=== PATIENT | male | born 1945 | race African-American/Black ===

== ENCOUNTER 2017-10-24 10:14 | Emergency (ER) | payer MEDICARE ==
[~2017-10-24] VITALS: Ht 175.3 cm; Wt 88.5 kg
[~2017-10-24 10:14] MED LIST: AMLODIPINE BESY10 MG PO; BENAZEPRIL HCL20 MG PO; DICLOFENAC SODI75 MG PO; ENOXAPARIN40 MG/0.4 SC; FUROSEMIDE20 MG PO; LORTAB 7.5-5001 EACH PO; ULTRAM 50MG50 MG PO
[2017-10-24] MEDS ORDERED: CYCLOBENZAPRINE HCL 10 MG TAB PO ONE (11:00)
[2017-10-24] MEDS ORDERED: KETOROLAC TROMETHAMINE 60 MG/2 ML VIAL IM ONE (11:00)
[2017-10-24] MEDS ORDERED: TRIAMCINOLONE ACET 40 MG/ML VIAL INJ ONE (11:00)
[2017-10-24] MEDS ORDERED: DEXAMETHASONE SOD PHOS 10 MG/1 ML VIAL INJ ONE (11:00)
[2017-10-24] MEDS ORDERED: HYDROCODONE/APAP 10MG-325MG TAB PO ONE (11:00)
[2017-10-24 11:11] LABS: BASOPHILS % 0.7 % (0.0-1.0); EOSINOPHILS # (AUTO) 0.4 (0.0-0.4); EOSINOPHILS % 9.7 % (0.0-6.0); HEMATOCRIT 36.6 % (38.2-49.6); LYMPHOCYTES % 24.1 % (18.0-39.1); MEAN CORPUSCULAR HEMOGLOBIN 31.3 pg (28-32); MEAN CORPUSCULAR HGB CONC 35.5 g/dL (31-35); MONOCYTES # (AUTO) 0.5 (0.2-0.8); MONOCYTES % 12.7 % (4.4-11.3); NEUTROPHILS # (AUTO) 2.2 (2.1-6.9); NEUTROPHILS % 52.6 % (38.7-80.0); PLATELET COUNT 213 x10e3/uL (140-360); RED BLOOD COUNT 4.16 x10e6/uL (4.3-5.7); RED CELL DISTRIBUTION WIDTH 13.2 % (11.7-14.4)
[2017-10-24 11:30] LABS: ALANINE AMINOTRANSFERASE 13 IU/L (0-55); ALBUMIN/GLOBULIN RATIO 1.6 (0.8-2.0); ALKALINE PHOSPHATASE 88 IU/L (40-150); ANION GAP 12.7 mmol/L (8-16); BLOOD UREA NITROGEN 9 mg/dL (7-26); BUN/CREATININE RATIO 10 (6-25); CALCIUM 9.4 mg/dL (8.4-10.2); CARBON DIOXIDE 23 mmol/L (22-29); CHLORIDE 100 mmol/L (98-107); CREATINE KINASE 179 IU/L (30-200); CREATININE, SERUM 0.87 mg/dL (0.72-1.25); EST GLOMERULAR FILTRATION RATE > 60 ML/MIN (60-); GLUCOSE 86 mg/dL (74-118); POTASSIUM 3.7 mmol/L (3.5-5.1); SODIUM 132 mmol/L (136-145)
== END 2017-10-24 14:14 | disposition home or self-care (01) ==
LOC: ER 10:14
DX: S46.812A Strain of other muscles, fascia and tendons at shoulder and upper arm level, left arm, initial encounter (principal); I10 Essential (primary) hypertension; E78.5 Hyperlipidemia, unspecified; N40.0 Benign prostatic hyperplasia without lower urinary tract symptoms; I25.2 Old myocardial infarction
CPT/HCPCS: 36415; 80053; 82550; 82553; 84484; 85025; 93005; 99284; J1885; J3301

== ENCOUNTER 2018-02-19 22:23 | Emergency (ER) | payer MEDICARE ==
[~2018-02-19] VITALS: Ht 175.3 cm; Wt 88.5 kg
--- OUTSIDE RECORDS SUMMARY | 2018-02-23 13:39 | XMS REPORT ---
[facility] Address Unknown Phone Unavailable Care Team Providers Care Credit Portfolio Manager Name Role Phone Unavailable Unavailable Payers Payer Name Policy Type Policy Number Effective Date Expiration Date Problems This patient has no known problems. Allergies, Adverse Reactions, Alerts Allergy Name Allergy Type Status Severity Reaction(s) Onset Date Inactive Date Treating Clinician Comments No Known Allergies DA Active U 2017-12-06 00:00:00 Medications This patient has no known medications.
[2018-03-12] MEDS ORDERED: SIMVASTATIN20 MG PO (09:40)
[2018-03-12] MEDS ORDERED: OMEPRAZOLE40 MG (09:40)
[2018-03-12] MEDS ORDERED: TAMSULOSIN HCL0.4 MG (09:40)
== END 2018-02-19 22:37 | disposition home or self-care (01) ==
LOC: ER 22:30
DX: M25.511 Pain in right shoulder (principal); S46.811A Strain of other muscles, fascia and tendons at shoulder and upper arm level, right arm, initial encounter; I10 Essential (primary) hypertension; E78.5 Hyperlipidemia, unspecified; I25.2 Old myocardial infarction
CPT/HCPCS: 99282

== ENCOUNTER 2018-03-15 05:08 | Inpatient (IN) | payer MEDICARE ==
[2018-03-12 09:55] LABS: BASOPHILS % 0.5 % (0.0-1.0); EOSINOPHILS # (AUTO) 0.2 (0.0-0.4); EOSINOPHILS % 6.3 % (0.0-6.0); HEMATOCRIT 39.5 % (38.2-49.6); HEMOGLOBIN 13.4 g/dL (14.0-18.0); LYMPHOCYTES # (AUTO) 0.5 (1.0-3.2); LYMPHOCYTES % 14.1 % (18.0-39.1); MEAN CORPUSCULAR HEMOGLOBIN 31.5 pg (28-32); MEAN CORPUSCULAR HGB CONC 33.9 g/dL (31-35); MEAN CORPUSCULAR VOLUME 92.9 fL (81-99); MONOCYTES # (AUTO) 0.3 (0.2-0.8); NEUTROPHILS # (AUTO) 2.6 (2.1-6.9); NEUTROPHILS % 69.6 % (38.7-80.0); PLATELET COUNT 191 x10e3/uL (140-360); RED BLOOD COUNT 4.25 x10e6/uL (4.3-5.7); RED CELL DISTRIBUTION WIDTH 13.4 % (11.7-14.4)
--- NOTE | 2018-03-12 10:59 | Diagnostic Imaging Report ---
PROCEDURE: Frontal and lateral views of the chest. COMPARISON: Chest radiograph 04/02/2012. INDICATIONS: PREOPERATIVE CHEST XRAY FOR RIGHT HIP SURGERY FINDINGS: Lines/tubes: None. Lungs: The lungs are well inflated and clear. There is no evidence of pneumonia or pulmonary edema. Pleura: There is no pleural effusion or pneumothorax. Heart and mediastinum: The cardiomediastinal silhouette is unremarkable. Atherosclerotic calcifications of the aortic arch. Bones: No acute bony abnormality. IMPRESSION: No acute radiographic abnormality. Dictated by: LOLA CANTU M.D. on 03/12/2018 at 11:07 Electronically approved by: LOLA CANTU M.D. on 03/12/2018 at 11:07
[~2018-03-15] VITALS: Ht 175.3 cm; Wt 94.0 kg
[~2018-03-15 05:08] MED LIST changes: +OMEPRAZOLE40 MG; +SIMVASTATIN20 MG PO; +TAMSULOSIN HCL0.4 MG
[2018-03-15] MEDS ORDERED: DEXAMETHASONE SOD PHOS 10 MG/1 ML VIAL ONE (05:25)
[2018-03-15] MEDS ORDERED: CELECOXIB 200 MG CAP ONE (05:25)
[2018-03-15] MEDS ORDERED: GABAPENTIN 300 MG CAP ONE (05:25)
[2018-03-15] MEDS ORDERED: CEFAZOLIN SOD 2 GM/D5W 50ML 50 ML IV ONE (05:25)
[2018-03-15] MEDS ORDERED: ROPIVACAINE 246.25 MG, EPINEPHRINE HCL 1:1000 0.5 MG, CLONIDINE HCL 0.08 MG, KETOROLAC ... INJ ONE ×5 (06:00)
[2018-03-15] MEDS ORDERED: TRANEXAMIC ACID 1,000 MG/10 ML ML ONE (06:22)
[2018-03-15] MEDS ORDERED: MUPIROCIN 2% OINT 22 GM TUBE ONE (06:22)
[2018-03-15] MEDS ORDERED: HYDROGEN PEROXIDE 120 ML BTL ONE (06:22)
[2018-03-15] MEDS ORDERED: BACITRACIN 50,000 UNIT VIAL ONE (06:23)
[2018-03-15] MEDS ORDERED: LIDOCAINE HCL 2% LOCAL 20 ML VIAL ONE (06:41)
[2018-03-15] MEDS ORDERED: BUPIVACAINE 7.5MG/ML /DEXTROSE 82.5MG/ML 2 ML AMP INJ ONE (06:41)
[2018-03-15] MEDS ORDERED: SODIUM CHLORIDE 0.9% 1000ML 1,000 ML IV SCH (08:39)
[2018-03-15] MEDS ORDERED: PROMETHAZINE HCL (IM) 25 MG/ML VIAL IM PRN (08:45)
[2018-03-15] MEDS ORDERED: ACETAMINOPHEN 650 MG SUPP PR PRN (08:45)
[2018-03-15] MEDS ORDERED: DIPHENHYDRAMINE HCL INJ 50 MG/ML VIAL IM/IV PRN (08:45)
[2018-03-15] MEDS ORDERED: HYDROCODONE/APAP 5MG-325MG TAB PO PRN (08:45)
[2018-03-15] MEDS ORDERED: DOCUSATE SODIUM 100 MG CAP PO PRN (08:45)
[2018-03-15] MEDS ORDERED: KETOROLAC TROMETHAMINE 30 MG/ML VIAL IV PRN (08:45)
[2018-03-15] MEDS ORDERED: ONDANSETRON HCL INJ 2 MG/ML VIAL IV PRN (08:45)
[2018-03-15] MEDS ORDERED: CELECOXIB 100 MG CAP PO SCH (09:00)
--- NOTE | 2018-03-15 09:34 | Diagnostic Imaging Report ---
PROCEDURE:X-RAY PELVIS, AP VIEW COMPARISON:Pelvic radiographs 04/05/12. INDICATIONS:POST OPERATIVE RIGHT HIP SURGERY FINDINGS: There are immediate post operative changes related to right total hip arthroplasty. Hardware appears intact. Alignment is unremarkable. No evidence of fracture. There is subcutaneous gas and overlying skin didi. Findings of prior left total hip arthroplasty are unchanged. CONCLUSION: Post surgical changes status post right total hip arthroplasty as above. Prior left total hip arthroplasty. Dictated by: LOLA CANTU M.D. on 03/15/2018 at 9:44 Electronically approved by: LOLA CANTU M.D. on 03/15/2018 at 9:44
[2018-03-15] MEDS: ASPIRIN 325 MG TAB PO SCH ×2 (10:52→16:15)
[2018-03-15] MEDS: CELECOXIB 200 MG CAP PO SCH ×2 (10:52→16:16)
--- NOTE | 2018-03-15 11:11 | Operative Report ---
DATE OF PROCEDURE: March 15, 2018 MANGLE OPERATOR GARMENTS: Sin Sheppard PA-C The patient was brought to the operating room for induction of anesthesia. Throughout this case, my PA's assistance was necessary for retraction of soft tissue and positioning of the extremity. This allows for efficient and technically successful execution of the operation and is considered medically necessary. PREOPERATIVE DIAGNOSIS: Osteoarthritis, right hip. POSTOPERATIVE DIAGNOSIS: Osteoarthritis, right hip. PROCEDURE: Right total hip arthroplasty. INDICATIONS: The patient is a 72-year-old gentleman with end-stage arthritis of the right hip. He has failed conservative management and would like to proceed with a right total hip replacement. The risks and benefits have been explained. He is familiar with the procedure. He has been through a left hip replacement. He states he understands and wishes to proceed. DESCRIPTION OF PROCEDURE: The patient was taken to the operating room and given a spinal anesthetic. He was then given a light general anesthetic and positioned in the left lateral decubitus position. He received prophylactic antibiotics and tranexamic acid in the holding area. His right hip was prepped and draped in a sterile manner. A preoperative time out was performed. A posterior approach was made to the right hip. Hemostasis was obtained with electrocautery. A self-retaining Charnley retractor was placed. Care was taken to avoid injury to the sciatic nerve. The posterior capsule was carefully exposed. Further hemostasis was obtained with electrocautery. The short external rotators were severely contracted. They were released with the posterior capsule. The hip was dislocated, and an oscillating saw was used to resect the femoral head. Complete loss of articular cartilage was noted. Acetabular retractors were carefully placed. Soft-tissue releases were performed to provide adequate visualization of the socket. Throughout the case, a shower-tip pulsatile lavage was used to irrigate the hip on multiple occasions. The true floor of the acetabulum was established with a 46-mm reamer. The socket was then sequentially reamed to 55 mm. A [place] Trident 56-mm outer diameter was then impacted into place. Excellent fixation was obtained. Fixation was slightly augmented with a single 20-mm cancellous screw placed into the ilium. A highly crosslink polyethylene liner with a 36 mm inner diameter was then impacted into place. Care was taken to make sure that there was no evidence of soft-tissue interposition. A portion of a 100 mL premixed pericapsular injection was then placed around the socket. Attention was then directed towards the proximal femur. A box cutting osteotome and taper pin reamer were used to establish entry to the femoral canal. The [place] 44-mm offset broaches were then impacted. A #1 stem had good canal fill and stability for trial reductions. A standard 36-mm head was felt to provide appropriate soft-tissue balancing and yarsani of limb length. The trial implants were removed. A small bone plug was placed down the femoral canal. The canal was thoroughly irrigated with a pulsatile lavage and then packed with a moistly soaked peroxide sponge under suction. Two mixes of Simplex cement were prepared on the back table. They were inserted in a retrograde fashion and pressurized. The stem was then seated to the predetermined level in approximately 15 degrees of anteversion. Repeat trial reductions were performed. A standard 36-mm head was felt to provide appropriate stability and yarsani of limb length. The femoral head was seated onto the stem. A final reduction was performed. The posterior capsule was repaired with #2 Ethibond. The tensor fascia and gluteal fascia were closed with #2 Ethibond. The remainder of the MARIBELL injection was placed into the subcutaneous tissue. The skin was closed with subcuticular Vicryl and didi. The patient was returned to the supine position and extubated. He was transported to the recovery room in stable condition. Estimated blood loss was approximately 75 mL, and all needle and sponge counts were correct. Job#: [id number]
[2018-03-15 11:16] VITALS: BP 129/64
[2018-03-15 12:04] VITALS: BP 129/60
[2018-03-15] MEDS: ACETAMINOPHEN 1000 MG/100 ML IV SCH ×2 (12:11→18:14)
[2018-03-15] MEDS ORDERED: CEFAZOLIN SOD 1 GM/D5W 50ML 50 ML IV SCH (14:00)
[2018-03-15] MEDS: HYDROCODONE/APAP 7.5MG-325MG 1 EA TAB PO PRN (14:02)
[2018-03-15] MEDS: CEFAZOLIN SOD 1 GM VIAL IV SCH ×2 (14:02→22:25)
[2018-03-15 16:37] VITALS: BP 116/60
[2018-03-15] MEDS ORDERED: FENTANYL CITRATE/PF 100MCG/2 ML INJ ONE (18:29)
[2018-03-15] MEDS ORDERED: MIDAZOLAM HCL 2 MG/2 ML VIAL ONE (18:29)
[2018-03-15] MEDS ORDERED: EPHEDRINE SULFATE INJ 50 MG/10 ML SYR ONE (19:50)
[2018-03-15] MEDS ORDERED: SEVOFLURANE INHAL SOLN 250 ML PEN BTL ONE (19:50)
[2018-03-15] MEDS ORDERED: LIDOCAINE HCL 2% LOCAL INJ 5 ML SDV VIAL INJ ONE (19:50)
[2018-03-15] MEDS ORDERED: VASOPRESSIN INJ 20 UNIT/ML VIAL ONE (19:50)
[2018-03-15] MEDS ORDERED: PHENYLEPHRINE HCL 1% 10 MG/ML VIAL ONE (19:50)
[2018-03-15] MEDS ORDERED: PROPOFOL IV EMULSION 10 MG/ML 20 ML VIAL ONE (19:50)
[2018-03-15] MEDS ORDERED: ONDANSETRON HCL INJ 2 MG/ML VIAL ONE (19:50)
[2018-03-15] MEDS ORDERED: GLYCOPYRROLATE INJ 1MG/ 5 ML SYR ONE (19:50)
[2018-03-15] MEDS ORDERED: ROCURONIUM BROMIDE 10 MG/ML 5ML VIAL ONE (19:50)
[2018-03-15] MEDS ORDERED: NEOSTIGMINE 5 MG/5ML SYR ONE (19:50)
[2018-03-15 20:00] VITALS: BP 108/57
[2018-03-15 20:05] VITALS: BP 108/57
[2018-03-15] MEDS ORDERED: ZOLPIDEM TARTRATE 5 MG TAB PO PRN (21:00)
[2018-03-16] VITALS: BP 127/57
[2018-03-16 04:00] VITALS: BP 121/60
[2018-03-16 04:54] LABS: HEMATOCRIT 29.1 % (38.2-49.6); HEMOGLOBIN 9.9 g/dL (14.0-18.0)
[2018-03-16] MEDS: CEFAZOLIN SOD 1 GM VIAL IV SCH (05:57)
[2018-03-16] MEDS: ACETAMINOPHEN 1000 MG/100 ML IV SCH ×2 (05:57)
[2018-03-16] MEDS: HYDROCODONE/APAP 7.5MG-325MG 1 EA TAB PO PRN ×2 (07:10→14:01)
[2018-03-16] MEDS ORDERED: PANTOPRAZOLE SOD 40 MG TABEC PO SCH (07:30)
[2018-03-16 08:29] VITALS: BP 150/67
[2018-03-16] MEDS ORDERED: ACETAMINOPHEN 1000 MG/100 ML IV PRN (08:45)
[2018-03-16] MEDS ORDERED: NON-FORMULARY MEDICATION (Benazepril Hcl 20 MG) PO SCH (09:00)
[2018-03-16] MEDS ORDERED: BENAZEPRIL HCL 10 MG TAB PO SCH (09:00)
[2018-03-16] MEDS ORDERED: TAMSULOSIN HCL 0.4 MG CAP PO SCH (09:00)
[2018-03-16] MEDS ORDERED: AMLODIPINE BESYLATE 10 MG TAB PO SCH (09:00)
[2018-03-16] MEDS: CELECOXIB 200 MG CAP PO SCH (09:02)
[2018-03-16] MEDS: ASPIRIN 325 MG TAB PO SCH (09:02)
[2018-03-16 09:10] VITALS: BP 150/67
[2018-03-16] MEDS ORDERED: ASPIRIN325 MG PO (11:58)
[2018-03-16 12:36] VITALS: BP 126/60
[2018-03-16] MEDS ORDERED: SIMVASTATIN 20 MG TAB PO SCH (21:00)
--- NOTE | 2018-05-09 11:52 | Consultation ---
DATE OF CONSULTATION: March 16, 2018 REASON FOR CONSULTATION: Postop medical management. HISTORY OF PRESENT ILLNESS: Patient is a 72-year-old status post right hip arthroplasty, is doing well postoperatively with good pain control. REVIEW OF SYSTEMS: Denies any chest pain, fever, chills, headache, shortness of breath, dizziness, nausea, or vomiting. PAST MEDICAL HISTORY: Significant for hyperlipidemia and hypertension. MEDICATIONS: See MAR. ALLERGIES: NONE. SOCIAL HISTORY: Nonsmoker, nondrinker. FAMILY HISTORY: Noncontributory. PHYSICAL EXAMINATION: VITALS: Temperature 98.7, pulse 66, blood pressure 127/57, sats 98%. GENERAL: No apparent distress. LUNGS: Clear to auscultation bilaterally. NECK: Supple. CARDIOVASCULAR: Regular rate and rhythm. ABDOMEN: Good bowel sounds. Soft, nontender. EXTREMITIES: No clubbing or cyanosis. NEUROLOGIC: Nonfocal. ASSESSMENT AND PLAN: 1. Anemia. Check a CBC. 2. Hyperlipidemia. We will continue with his home medicines at discharge. 3. Hypertension. Continue to monitor. 4. Hip pain. Continue with physical therapy. Please see hospital chart for full details. Job#: [id number] BEAN
== END 2018-03-16 14:39 | disposition home health service (06) | DRG 470 ==
LOC: OR 05:08 → PACU V 08:40 → MED/SURG 10:33
PROVIDERS: ADMIT Specialist; ATTEND Specialist
PROC: 0SR9029 Replacement of Right Hip Joint with Metal on Polyethylene Synthetic Substitute, Cemented, Open Approach (ICD-10-PCS; principal; 2018-03-15 07:00)
DX: M16.0 Bilateral primary osteoarthritis of hip (principal); F17.210 Nicotine dependence, cigarettes, uncomplicated; I25.2 Old myocardial infarction; I10 Essential (primary) hypertension; Z96.642 Presence of left artificial hip joint; Z87.891 Personal history of nicotine dependence; N40.0 Benign prostatic hyperplasia without lower urinary tract symptoms; D64.9 Anemia, unspecified; E78.00 Pure hypercholesterolemia, unspecified
CPT/HCPCS: 36415; 71046; 72170; 85014; 85018; 85025; 86850; 86900; 86920; 93005; C1713; J0171; J0690; J1100; J1885; J2001; J2250; J2370; J2405; J2795; J7030